=== PATIENT | female | born 1965 | race Caucasian/White ===

== ENCOUNTER 2022-03-09 13:14 | Emergency (ER) | payer OTHER ==
[2022-03-09 13:28] VITALS: BP 145/77
[2022-03-09] MEDS ORDERED: ONDANSETRON ODT 4 MG TABLET TL STA (14:09)
[2022-03-09] MEDS ORDERED: HYDROmorphone 1 MG/ML CARPUJECT IM STA (14:09)
[2022-03-09] MEDS ORDERED: KETOROLAC 60 MG/2 ML VIAL IM STA (14:09)
--- NOTE | 2022-03-09 14:10 | ED Physician Documentation ---
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 She is unable to move it at all now. Tylenol and ibuprofen have not been helpful. No history of issues with that shoulder. Review of Systems Constitutional: reports: Reviewed and negative Eyes: reports: Reviewed and negative Ears: reports: Reviewed and negative Nose: reports: Reviewed and negative Respiratory: reports: Reviewed and negative GI: reports: Reviewed and negative PD PAST MEDICAL HISTORY - Present Medications Home Medications: Ambulatory Orders Medication Instructions Recorded Confirmed Oxycodone HCl/Acetaminophen 1 - 2 each PO Q6H PRN #20 tablet 03/09/22 [Percocet 5-325 mg Tablet] - Allergies Allergies/Adverse Reactions: Allergies Allergy/AdvReac Type Severity Reaction Status Date / Time No Known Drug Allergies Allergy Verified 03/09/22 13:29 PD ED PE NORMAL - Vitals Vital signs reviewed: Yes - General General: Alert and oriented X 3, No acute distress - Neck Neck: Supple, no meningeal sign, No bony TTP - Extremities Extremities: Other (The left shoulder is in a sling. She is unable to range it at all. She has significant tenderness over the glenohumeral joint. Unable to check the rotator cuff due to inability to range but does seem to have some strength with internal and external rotation with her arm at her side.) - Neuro Neuro: Alert and oriented X 3, Normal speech Results - Vitals Vitals: Vital Signs - 24 hr 03/09/22 13:24 Temperature 36.6 C Heart Rate 86 Respiratory 18 Rate Blood Pressure 145/77 H O2 Saturation 98 Oxygen O2 Source Room air PD MEDICAL DECISION MAKING - ED course ED course: 56-year-old woman with 2 months of left shoulder pain worse over the last few days. She has no range of motion. Infection is considered, but no fevers, warmth, redness. She has a history of frozen shoulder on the other side and we discussed range of motion exercises to do to maintain range of motion pending follow-up. X-ray negative with the exception of a joint effusion. Departure - Departure Disposition: 01 Home, Self Care Clinical Impression: Left shoulder pain Condition: Good Record reviewed to determine appropriate education?: Yes Instructions: ED Shoulder Pain [facility] Follow-Up: [facility]opedic [facility] [Provider Group] Prescriptions: Oxycodone HCl/Acetaminophen [Percocet 5-325 mg Tablet] 1 - 2 each PO Q6H PRN #20 tablet PRN Reason: pain Comments: As discussed the x-ray was normal with the exception of some fluid in the joint. The range of possibilities is broad and you should follow-up with an orthopedist for reevaluation and potential scheduling of an MRI. Call the office tomorrow for an appointment within the week. Return for new or worsening symptoms. I sent your prescription electronically to [facility] in [place]. I am prescribing a short course of narcotic pain medication for you. These are potentially dangerous and addictive medications that should be used carefully. These medications may constipate you. Take an vzxc-gur-frdubbm stool softener (docusate) twice daily with plenty of water while taking these medications. If you go 24 hours without a bowel movement, take vpob-[id number]-[id number] miralax, per package instructions. Do not drink or drive while taking these medications. If you received narcotic or sedating medications while in the emergency department, do not drive for 24 hours. Store this medication in a safe, secure place and out of reach of children. It is a violation of federal law to give or sell this medication to another person or to use in a manner other than prescribed. The ED will not refill narcotic prescriptions, including prescriptions lost or stolen. To dispose of unwanted medications: 1. [facility] at [address] in [place] has a medication drop box. They accept prescription medications (in pill form) Thursday through Thursday 9:00 a.m. to 5:00 p.m. 2. [facility] [employer] accepts prescription medications (in pill form only) for disposal year round. Call for more information. 3. Contact the [facility] for the next [facility] sponsored prescription drug collection event. , [phone], or [phone]; Note that many narcotic pain relievers also contain Tylenol/acetaminophen. Please ensure that your total dose of acetaminophen from all sources does not exceed 3 g (3000 mg) per day.
--- NOTE | 2022-03-09 14:56 | XRAY Report ---
PROCEDURE: Shoulder 3 View LT INDICATIONS: shoulder pain TECHNIQUE: 3 views of the shoulder were acquired. COMPARISON: None. FINDINGS: Bones: No fractures or dislocations. Somewhat inferior displacement of the humeral head or relative to the glenoid can potentially represent the presence of a shoulder joint effusion. No suspicious bon y lesions. Visualized ribs appear intact. Soft tissues: No suspicious soft tissue calcifications. IMPRESSION: Question shoulder joint effusion. No evidence acute bony abnormality of the left shoulder. Comment: If evaluation of a possible shoulder joint effusion is required in the emergency setting, a CT of the shoulder with contrast may be helpful. Alternatively, in the nonemergent setting, a Shoulde r MRI could be obtained. Reviewed by: Jem Lux MD on 03/09/2022 1:55 PM PAVEL Approved by: Jem Lux MD on 03/09/2022 1:55 PM PAVEL Station ID: [id number]
== END 2022-03-09 15:20 | disposition home or self-care (01) ==
LOC: ED 13:14
DX: M25.512 Pain in left shoulder (principal)
CPT/HCPCS: 73030; 96372; 99282; 99283; J1170; Q0162